=== PATIENT | male | born 1975 | race Caucasian/White ===

== ENCOUNTER 2019-05-22 11:35 | Emergency (ER) | payer OTHER ==
[2019-05-22] MEDS ORDERED: IBUPROFEN 400 MG TAB ONE (12:13)
--- NOTE | 2019-05-22 12:46 | RAD REPORT ---
EXAM DESCRIPTION: RAD - Knee Left 3 View - 05/22/2019 12:36 pm CLINICAL HISTORY: fall yesterday;Pain COMPARISON: No comparisons FINDINGS: No fracture or dislocation is seen. No significant joint effusion.
--- NOTE | 2019-05-22 12:56 | EDPHYS ---
Physician Documentation [facility] Name: Dominick Javed Age: 43 yrs Sex: Male : 1975 Arrival Date: 05/22/2019 Time: 11:38 Bed 11 Private MD: ED Physician Eddi Way HPI: 05/22 12:00 This 43 yrs old Male presents to ER via Ambulatory with complaints of Fall cp Injury, Knee Pain. 12:00 The patient presents with an abrasion, an injury, pain, that is acute, swelling, cp tenderness. The complaints affect the left knee. Context: The problem was sustained outdoors, resulted from the patient falling, the patient can fully bear weight, the patient is able to ambulate. Onset: The symptoms/episode began/occurred last night. Associated signs and symptoms: Pertinent positives: swelling, Pertinent negatives calf tenderness, numbness, warmth, weakness. Treatment prior to arrival includes: no previous treatment. Historical: - Allergies: 11:44 No Known Allergies; aa5 - PMHx: 11:44 Asthma; aa5 - PSHx: 11:44 Heart stents; aa5 - Immunization history:: Flu vaccine is not up to date. - Social history:: Smoking status: Patient reports the use of cigarette tobacco products, denies chronic smoking, but will smoke occasionally. - Ebola Screening: : No symptoms or risks identified at this time. ROS: 12:05 Constitutional: Negative for body aches, chills, fever. cp 12:05 Eyes: Negative for injury, pain, redness, and discharge. cp 12:05 Neck: Negative for pain with movement, pain at rest, stiffness. 12:05 Cardiovascular: Negative for chest pain, palpitations. 12:05 Respiratory: Negative for cough, shortness of breath, wheezing. 12:05 Abdomen/GI: Negative for abdominal pain. 12:05 Back: Negative for pain at rest, pain with movement. 12:05 MS/extremity: Positive for abrasion, pain, swelling, tenderness, of the left knee, Negative for decreased range of motion, deformity, paresthesias. 12:05 Neuro: Negative for altered mental status, headache, syncope, weakness. 12:05 All other systems are negative. Exam: 12:15 Constitutional: The patient appears in no acute distress, alert, awake, well developed, cp well nourished. 12:15 Head/Face: Normocephalic, atraumatic. cp 12:15 Cardiovascular: Rate: normal. 12:15 Respiratory: the patient does not display signs of respiratory distress, Respirations: normal. 12:15 Musculoskeletal/extremity: Extremities: grossly normal except: noted in the left knee: abrasion, swelling, tenderness, There is no evidence of decreased ROM, deformity, erythema, ROM: full active range of motion, in the left knee, Perfusion: the extremity is normally perfused throughout, Sensation intact. 12:15 Skin: cellulitis, is not appreciated, injury, abrasion(s), small abrasion noted, of the anterior aspect left knee. Vital Signs: 11:45 BP 119 / 83; Pulse 62; Resp 16 S; Temp 98.0(TE); Pulse Ox 97% on R/A; Weight 72.57 kg aa5 (R); Height 5 ft. 7 in. (170.18 cm) (R); Pain 5/10; 11:45 Body Mass Index 25.06 (72.57 kg, 170.18 cm) aa5 MDM: 11:54 Patient medically screened. cp 12:55 Differential diagnosis: dislocation, closed fracture, contusion, abrasion. cp 12:55 Data reviewed: vital signs, nurses notes, radiologic studies, plain films. Test cp interpretation: by ED physician or midlevel provider: plain radiologic studies, xrays left knee negative for fracture. Counseling: I had a detailed discussion with the patient and/or guardian regarding: the historical points, exam findings, and any diagnostic results supporting the discharge/admit diagnosis, radiology results, to return to the emergency department if symptoms worsen or persist or if there are any questions or concerns that arise at home. ED course: Wounds cleaned and dressed. Will discharge to home for continued monitoring. 05/22 11:57 Order name: XRAY Knee LEFT 3 view; Complete Time: 12:52 cp 05/22 12:52 Interpretation: Report reviewed. cp 05/22 12:38 Order name: Wound dressing; Complete Time: 13:06 cp 05/22 12:38 Order name: Heladio wrap-joint; Complete Time: 13:06 cp Administered Medications: 12:12 Drug: Ibuprofen 800 mg Route: PO; aa5 Disposition: 05/23 02:45 Co-signature as Attending Physician, Eddi Way MD I agree with the assessment and kdr plan of care. Disposition: 05/22/19 12:55 Discharged to Home. Impression: Abrasion, left knee - from fall, Pain in left knee - from fall. - Condition is Stable. - Discharge Instructions: Abrasion, Elastic Bandage and RICE, Knee Pain. - Prescriptions for Naprosyn 500 mg Oral Tablet - take 1 tablet by ORAL route 2 times per day take with food; 20 tablet. - Medication Reconciliation Form, Thank You Letter, Antibiotic Education, Prescription Opioid Use form. - Follow up: Private Physician; When: 5 - 6 days; Reason: Worsening of condition. - Problem is new. - Symptoms have improved. Signatures: Dispatcher [employer] EDMS Eddi Way MD MD [facility] June Son RN RN aa5 Tam Frost PA PA cp Nusrat Swann RN RN hb Corrections: (The following items were deleted from the chart) 05/22 13:13 12:55 05/22/2019 12:55 Discharged to Home. Impression: Abrasion, left knee - from fall; hb Pain in left knee - from fall. Condition is Stable. Forms are Medication Reconciliation Form, Thank You Letter, Antibiotic Education, Prescription Opioid Use. Follow up: Private Physician; When: 5 - 6 days; Reason: Worsening of condition. Problem is new. Symptoms have improved. cp
--- NOTE | 2019-05-22 12:56 | ER ---
Nurse's Notes [facility] Name: Domincik Javed Age: 43 yrs Sex: Male : 1975 Arrival Date: 05/22/2019 Time: 11:38 Bed 11 Private MD: Diagnosis: Abrasion, left knee-from fall;Pain in left knee-from fall Presentation: 05/22 11:45 Presenting complaint: Patient states: "I tripped and hurt my left knee". Transition of [facility] care: patient was not received from another setting of care. Onset of symptoms was May 21, 2019. Risk Assessment: Do you want to hurt yourself or someone else? Patient reports no desire to harm self or others. Initial Sepsis Screen: Does the patient meet any 2 criteria? No. Patient's initial sepsis screen is negative. Does the patient have a suspected source of infection? No. Patient's initial sepsis screen is negative. Care prior to arrival: None. 11:45 Acuity: BREE 4 aa5 11:45 Method Of Arrival: Ambulatory [facility] Historical: - Allergies: 11:44 No Known Allergies; aa5 - PMHx: 11:44 Asthma; aa5 - PSHx: 11:44 Heart stents; aa5 - Immunization history:: Flu vaccine is not up to date. - Social history:: Smoking status: Patient reports the use of cigarette tobacco products, denies chronic smoking, but will smoke occasionally. - Ebola Screening: : No symptoms or risks identified at this time. Screenin:30 Abuse screen: Denies threats or abuse. Denies injuries from another. Nutritional hb screening: No deficits noted. Tuberculosis screening: No symptoms or risk factors identified. Fall Risk None identified. Assessment: 11:50 General: Appears comfortable, Behavior is calm, cooperative. Pain: Complains of pain in aa5 left knee Pain does not radiate. Pain currently is 5 out of 10 on a pain scale. Quality of pain is described as aching, numb, Is continuous, Aggravated by weight bearing. Neuro: Level of Consciousness is awake, alert, obeys commands, Oriented to person, place, time, situation. Cardiovascular: Heart tones S1 S2 present Rhythm is regular. Respiratory: Airway is patent Respiratory effort is even, unlabored, Respiratory pattern is regular, symmetrical. GI: No signs and/or symptoms were reported involving the gastrointestinal system. : No signs and/or symptoms were reported regarding the genitourinary system. EENT: No signs and/or symptoms were reported regarding the EENT system. Derm: Skin is pink, warm \\T\\ dry. abrasion noted to left knee, no bleeding noted. Musculoskeletal: Reports pain in left knee. 12:12 Reassessment: Patient is alert, oriented x 3, equal unlabored respirations, skin aa5 warm/dry/pink. Awaiting x-ray . Vital Signs: 11:45 BP 119 / 83; Pulse 62; Resp 16 S; Temp 98.0(TE); Pulse Ox 97% on R/A; Weight 72.57 kg aa5 (R); Height 5 ft. 7 in. (170.18 cm) (R); Pain 5/10; 11:45 Body Mass Index 25.06 (72.57 kg, 170.18 cm) aa5 ED Course: 11:38 Patient arrived in ED. ag5 11:44 Arm band placed on. aa5 11:46 Triage completed. aa5 11:46 June Son RN is Primary Nurse. aa5 11:46 Tam Frost PA is PHCP. cp 11:[address] MD is Attending Physician. cp 12:30 Patient has correct armband on for positive identification. Call light in reach. hb 12:36 XRAY Knee LEFT 3 view In Process Unspecified. EDMS 13:06 Wound care: to abrasion, was cleaned with Betadine, irrigated with normal saline, lt1 dressed with applied triple antibiotic and dressed with non stick pad then wrapped with timur wrap, Patient tolerated well. 13:13 No provider procedures requiring assistance completed. Patient did not have IV access hb during this emergency room visit. Administered Medications: 12:12 Drug: Ibuprofen 800 mg Route: PO; aa5 Outcome: 12:55 Discharge ordered by MD. cp 13:13 Discharged to home ambulatory. hb 13:13 Condition: stable 13:13 Discharge instructions given to patient, Instructed on discharge instructions, follow up and referral plans. medication usage, wound care, Demonstrated understanding of instructions, follow-up care, medications, wound care, Prescriptions given X 1. 13:13 Patient left the ED. hb Signatures: Dispatcher [employer] EDMI June Son RN RN aa5 Tam Frost PA PA cp Baxter, Heather, RN RN hb Tony, Cedric ag5 Taty Donato 1
[2019-05-22 13:23] VITALS: BP 119/83; TEMP 98; O2SAT 97
== END 2019-05-22 13:13 | disposition home or self-care (01) ==
LOC: ER 11:35
DX: S80.212A Abrasion, left knee, initial encounter (principal); M25.562 Pain in left knee; W01.0XXA Fall on same level from slipping, tripping and stumbling without subsequent striking against object, initial encounter; Y93.9 Activity, unspecified; Z95.5 Presence of coronary angioplasty implant and graft; F17.210 Nicotine dependence, cigarettes, uncomplicated
CPT/HCPCS: 99284

== ENCOUNTER 2020-01-26 09:38 | Emergency (ER) | payer OTHER ==
[2020-01-26] MEDS ORDERED: DIAZEPAM 5 MG TABLET ONE (10:15)
[2020-01-26] MEDS ORDERED: KETOROLAC 30 MG/ML INJ ONE (10:15)
--- NOTE | 2020-01-26 11:18 | RAD REPORT ---
EXAM DESCRIPTION: RAD - Shoulder Right 2 View - 01/26/2020 10:30 am CLINICAL HISTORY: Right shoulder pain FINDINGS: No acute fracture or dislocation seen. 6 centimeter distal aspect of the right clavicle lies distal to the remainder of the clavicle. It is attached to the mid clavicle by a 2.4 centimeter bone bridge. This all likely is the sequela of old t rauma. Mild narrowing of the AC joint Calcific density superior to the right humeral head may indicate calcific tendinitis
--- NOTE | 2020-01-26 11:21 | ER ---
Nurse's Notes [facility] Name: Dominick Javed Age: 44 yrs Sex: Male : 1975 Arrival Date: 01/26/2020 Time: 09:39 Bed 17 Private MD: Diagnosis: Calcific tendinitis of right shoulder Presentation: 01/25 09:47 Chief complaint: Patient states: C/o right shoulder pain 4/10 that started yesterday. rb1 Coronavirus screen: At this time, the client does not indicate any symptoms associated with coronavirus-19. Ebola Screen: Patient denies travel to an Ebola-affected area in the 21 days before illness onset. Initial Sepsis Screen: Does the patient meet any 2 criteria? No. Patient's initial sepsis screen is negative. Does the patient have a suspected source of infection? No. Patient's initial sepsis screen is negative. Risk Assessment: Do you want to hurt yourself or someone else? Patient reports no desire to harm self or others. Onset of symptoms was January 25, 2020. 09:47 Method Of Arrival: Ambulatory [facility] 09:47 Acuity: BREE 3 rb1 Triage Assessment: 09:47 General: Appears in no apparent distress. Behavior is calm, cooperative. Pain: rb1 Complains of pain in right shoulder Pain currently is 4 out of 10 on a pain scale. Pain began 1 day ago. Neuro: Level of Consciousness is awake, alert, obeys commands, Oriented to person, place, time, situation. Cardiovascular: Capillary refill < 3 seconds. Respiratory: Airway is patent Respiratory effort is even, unlabored, Respiratory pattern is regular, symmetrical. GI: No signs and/or symptoms were reported involving the gastrointestinal system. : No signs and/or symptoms were reported regarding the genitourinary system. Derm: No signs and/or symptoms reported regarding the dermatologic system. Musculoskeletal: Range of motion: limited in right shoulder Pt. denies injury. Historical: - Allergies: :47 No Known Allergies; rb1 - Home Meds: :47 aspirin 81 mg Oral chew 1 tab once daily [Active]; rb1 - PMHx: :47 Asthma; rb1 - PSHx: :47 Heart stents; rb1 - Immunization history:: Adult Immunizations up to date. - Social history:: Smoking status: Patient reports the use of cigarette tobacco products, denies chronic smoking, but will smoke occasionally. Screenin:47 Abuse screen: Denies threats or abuse. Nutritional screening: No deficits noted. rb1 Tuberculosis screening: No symptoms or risk factors identified. Fall Risk None identified. Assessment: 09:47 General: See triage assessment. rb1 10:47 Reassessment: Patient appears in no apparent distress at this time. Patient and/or rb1 family updated on plan of care and expected duration. Pain level reassessed. Patient is alert, oriented x 3, equal unlabored respirations, skin warm/dry/pink. 11:36 Reassessment: Patient appears in no apparent distress at this time. No changes from rb1 previously documented assessment. Vital Signs: 09:47 BP 134 / 91; Pulse 61; Resp 17; Temp 98.6; Pulse Ox 100% ; Weight 68.04 kg; Height 5 rb1 ft. 6 in. (167.64 cm); Pain 4/10; 10:47 BP 118 / 81; Pulse 45; Resp 17; Pulse Ox 99% ; rb1 11:35 BP 114 / 83; Pulse 64; Resp 17; Pulse Ox 100% ; rb1 09:47 Body Mass Index 24.21 (68.04 kg, 167.64 cm) rb1 ED Course: 09:39 Patient arrived in ED. ag5 09:40 Helder Peacock PA is PHCP. m 09:40 Tam Hoff MD is Attending Physician. [facility] 09:47 Angle Fu, RN is Primary Nurse. rb1 09:47 Arm band placed on right wrist. rb1 09:47 Patient has correct armband on for positive identification. Bed in low position. Call rb1 light in reach. Side rails up X 1. Pulse ox on. NIBP on. 09:56 Triage completed. rb1 10:31 Shoulder Right (2 View) XRAY In Process Unspecified. EDMS 11:41 Nicolas Portillo MD is Referral Physician. jmm 11:45 No provider procedures requiring assistance completed. Patient did not have IV access rb1 during this emergency room visit. Administered Medications: 10:05 Drug: Ketorolac 30 mg Route: IM; Site: right deltoid; rb1 10:30 Follow up: Response: No adverse reaction; Pain is decreased rb1 10:05 Drug: Valium 5 mg Route: PO; rb1 10:30 Follow up: Response: No adverse reaction rb1 Outcome: 11:21 Discharge ordered by MD. de la fuente 11:45 Discharged to home ambulatory. rb1 11:45 Condition: stable 11:45 Discharge instructions given to patient, Instructed on discharge instructions, follow up and referral plans. medication usage, Demonstrated understanding of instructions, follow-up care, medications, Prescriptions given X 2. 11:46 Patient left the ED. rb1 Signatures: Dispatcher [employer] EDMS Helder Peacock PA PA jmm Barber, Rebecca, RN RN rb1 Cedric Jimenez ag5
--- NOTE | 2020-01-26 11:22 | EDPHYS ---
Physician Documentation [facility] Name: Dominick Javed Age: 44 yrs Sex: Male : 1975 Arrival Date: 01/26/2020 Time: 09:39 Bed 17 Private MD: ED Physician Tam Hoff HPI: 01/25 09:56 This 44 yrs old Male presents to ER via Ambulatory with complaints of jmm Shoulder Pain. 09:56 The patient or guardian complains of pain. Onset: The symptoms/episode began/occurred 1 jmm day(s) ago. Modifying factors: the symptoms are alleviated by remaining still, The symptoms are aggravated by movement. Associated signs and symptoms: Pertinent negatives: abdominal pain, chest pain, neck pain, shortness of breath, tingling. This is a 44 year old male that presents to the ED with complaints of right ant shoulder pain beginning yesterday after surfing. Patient denies known injury but states he does perform repetitive activities with the shoulder. Patient states he has difficulty moving the shoulder.. Historical: - Allergies: 09:47 No Known Allergies; rb1 - Home Meds: 09:47 aspirin 81 mg Oral chew 1 tab once daily [Active]; rb1 - PMHx: 09:47 Asthma; rb1 - PSHx: 09:47 Heart stents; rb1 - Immunization history:: Adult Immunizations up to date. - Social history:: Smoking status: Patient reports the use of cigarette tobacco products, denies chronic smoking, but will smoke occasionally. ROS: 09:56 Constitutional: Negative for fever, chills, and weight loss, Cardiovascular: Negative jmm for chest pain, palpitations, and edema, Respiratory: Negative for shortness of breath, cough, wheezing, and pleuritic chest pain. 09:56 MS/extremity: Positive for pain. 09:56 All other systems are negative. Exam: 09:56 Constitutional: This is a well developed, well nourished patient who is awake, alert, jmm and in no acute distress. Head/Face: atraumatic. Eyes: EOMI, no conjunctival erythema appreciated ENT: Moist Mucus Membranes Neck: Trachea midline, Supple Chest/axilla: Normal chest wall appearance and motion. Cardiovascular: Regular rate and rhythm. No edema appreciated Respiratory: Normal respirations, no respiratory distress appreciated Abdomen/GI: Non distended, soft Back: Normal ROM Skin: General appearance color normal 09:56 Musculoskeletal/extremity: ROM: limited active range of motion, in the right arm, right ant shoulder ttp, full postdoctoral research associate strength, full radial pulse, pain on abduction. 09:56 Skin: Appearance: Color: normal in color. 09:56 Neuro: Orientation: is normal, Mentation: is normal, Memory: is normal. 09:56 Psych: Behavior/mood is pleasant, cooperative. Vital Signs: 09:47 BP 134 / 91; Pulse 61; Resp 17; Temp 98.6; Pulse Ox 100% ; Weight 68.04 kg; Height 5 rb1 ft. 6 in. (167.64 cm); Pain 4/10; 10:47 BP 118 / 81; Pulse 45; Resp 17; Pulse Ox 99% ; rb1 11:35 BP 114 / 83; Pulse 64; Resp 17; Pulse Ox 100% ; rb1 09:47 Body Mass Index 24.21 (68.04 kg, 167.64 cm) rb1 MDM: 09:50 Patient medically screened. [facility] 11:20 Data reviewed: vital signs, nurses notes. Counseling: I had a detailed discussion with [facility] the patient and/or guardian regarding: the historical points, exam findings, and any diagnostic results supporting the discharge/admit diagnosis, radiology results, the need for outpatient follow up, to return to the emergency department if symptoms worsen or persist or if there are any questions or concerns that arise at home. ED course: Patient is alert and non toxic in appearance in the ED. Xray findings consistent with PE findings. Patient is advised to follow up with pcp and otherwise given strict return precautions. Patient understood and agrees with the plan of care. . 01/25 09:56 Order name: Shoulder Right (2 View) XRAY; Complete Time: 11:19 [facility] Administered Medications: 10:05 Drug: Ketorolac 30 mg Route: IM; Site: right deltoid; rb1 10:30 Follow up: Response: No adverse reaction; Pain is decreased rb1 10:05 Drug: Valium 5 mg Route: PO; rb1 10:30 Follow up: Response: No adverse reaction rb1 Disposition: 13:54 Co-signature as Attending Physician, Tam Hoff MD I agree with the assessment and shavonne plan of care. Disposition: 01/26/20 11:21 Discharged to Home. Impression: Calcific tendinitis of right shoulder. - Condition is Stable. - Discharge Instructions: Calcific Tendinitis. - Prescriptions for Ibuprofen 800 mg Oral Tablet - take 1 tablet by ORAL route every 8 hours As needed take with food; 30 tablet. orphenadrine citrate 100 mg Oral Tablet Sustained Release - take 1 tablet by ORAL route 2 times per day As needed; 20 tablet. - Medication Reconciliation Form, Thank You Letter, Antibiotic Education, Prescription Opioid Use form. - Follow up: Nicolas Portillo MD; When: 2 - 3 days; Reason: Recheck today's complaints, Continuance of care, Re-evaluation by your physician. Signatures: Dispatcher [employer] EDMS Tam Hoff MD MD cha Mickail, Joel, PA PA [facility] Angle Fu RN RN rb1 Corrections: (The following items were deleted from the chart) 11:41 11:21 01/26/2020 11:21 Discharged to Home. Impression: Calcific tendinitis of right jmm shoulder. Condition is Stable. Forms are Medication Reconciliation Form, Thank You Letter, Antibiotic Education, Prescription Opioid Use. Follow up: Private Physician; When: 2 - 3 days; Reason: Recheck today's complaints, Continuance of care, Re-evaluation by your physician. [facility] 11:46 11:41 01/26/2020 11:21 Discharged to Home. Impression: Calcific tendinitis of right rb1 shoulder. Condition is Stable. Discharge Instructions: Calcific Tendinitis. Prescriptions for Ibuprofen 800 mg Oral Tablet - take 1 tablet by ORAL route every 8 hours As needed take with food; 30 tablet, orphenadrine citrate 100 mg Oral Tablet Sustained Release - take 1 tablet by ORAL route 2 times per day As needed; 20 tablet. and Forms are Medication Reconciliation Form, Thank You Letter, Antibiotic Education, Prescription Opioid Use. Follow up: Nicolas Portillo; When: 2 - 3 days; Reason: Recheck today's complaints, Continuance of care, Re-evaluation by your physician. [facility]
[2020-01-26 12:04] VITALS: TEMP 98.6
[2020-01-26 12:07] VITALS: BP 114/83; O2SAT 100
== END 2020-01-26 11:46 | disposition home or self-care (01) ==
LOC: ER 09:38
DX: M75.31 Calcific tendinitis of right shoulder (principal); F17.210 Nicotine dependence, cigarettes, uncomplicated; Z79.82 Long term (current) use of aspirin; Z95.818 Presence of other cardiac implants and grafts
CPT/HCPCS: 96372; 99284

== ENCOUNTER 2022-08-25 14:23 | Emergency (ER) | payer SELFPAY ==
--- OUTSIDE RECORDS SUMMARY | 2022-08-25 14:26 | XMS REPORT | Continuity of Care Document ---
:1975 Author Organization [facility] t Address [address] [facility]. [address] [place] [address] Care Team Providers Name Role Phone Nicolas Valenzuela MD Attending Clinician Aníbal Dong Attending Clinician ANÍBAL DELGADO Attending Clinician Unavailable Payers Payer Name Policy Type Policy Number Effective Date Expiration Date S ource Problems This patient has no known problems. Allergies, Adverse Reactions, Alerts Allergy Allergy Status Severity Reaction(s) Onset Inactive Treating Comm ents Source Name Type Date Date Clinician NO KNOWN Drug Active Univers ALLERGIE Class ity of S [facility] Social History Social Habit Start Date Stop Date Quantity Comments Source Sex Assigned At Universit y of [facility] Exposure to Not sure University of SARS-CoV-2 [facility] (event) Branch Tobacco use and 2020-01-28 2020-01-28 Current user Univers ity of exposure 00:00:00 00:00:00 [facility] Alcohol intake 2020-01-28 2020-01-28 Current drinker Unive rsity of 00:00:00 00:00:00 of alcohol [place] [facility] (finding) Branch History SDOH 2020-01-28 2020-01-28 2 University o f Alcohol Frequency 00:00:00 00:00:00 [place] [facility] History SDOH 2020-01-28 2020-01-28 99 University o f Alcohol Std 00:00:00 00:00:00 [facility] Drinks [facility] History SDRI 2020-01-28 2020-01-28 99 University o f Alcohol Binge 00:00:00 00:00:00 [place] [facility] Smoking Status Start Date Stop Date Source Current every day smoker 2020-01-28 00:00:00 Uni versity of [facility] Medications Ordered Filled Start Stop Current Ordering Indication Dosage Frequency Signature Comments Components Source Medication Medication Date Date Medication? Clinician (SIG) Name Name traMADoL 50 2020-1 2020- No 2745 50mg Take 1 Uni vers mg tablet 0-02 10-10 tablet by ity of 00:00: 04:59 mouth [place] 00 :00 every 4 Medical (four) Branch hours as needed for Pain (scale 7-10) for up to 7 days. Indication s: chronic pain ibuprofen 2019-04 Yes 800mg Take 800 Uni vers 800 mg 0-01 mg by ity of tablet 19:37: mouth [place] 23 every 6 Medical (six) Branch hours as needed. ibuprofen 2019-04 Yes 800mg Take 800 Uni vers 800 mg 0-01 mg by ity of tablet 19:37: mouth [place] 23 every 6 Medical (six) Branch hours as needed. ibuprofen 2019-04 Yes 800mg Take 800 Uni vers 800 mg 0-01 mg by ity of tablet 19:37: mouth [place] 23 every 6 Medical (six) Branch hours as needed. ibuprofen 2019-04 Yes 800mg Take 800 Uni vers 800 mg 0-01 mg by ity of tablet 19:37: mouth [place] 23 every 6 Medical (six) Branch hours as needed. ibuprofen 2019-04 Yes 800mg Take 800 Uni vers 800 mg 0-01 mg by ity of tablet 19:37: mouth [place] 23 every 6 Medical (six) Branch hours as needed. atorvastati 2019-04 Yes Take by Uni vers n calcium 0-01 mouth. ity of (ATORVASTAT 19:36: [place] IN ORAL) Medical Branch aspirin 81 2019-04 Yes 81mg Take 81 mg U nivers mg EC 0-01 by mouth ity of tablet 19:36: daily. [place] [address] Medical Branch atorvastati 2019-04 Yes Take by Uni vers n calcium 0-01 mouth. ity of (ATORVASTAT 19:36: [place] IN ORAL) Medical Branch aspirin 81 2019- Yes 81mg Take 81 mg U nivers mg EC 0-01 by mouth ity of tablet 19:36: daily. [place] [address] Medical Branch atorvastati 2019-04 Yes Take by Uni vers n calcium 0-01 mouth. ity of (ATORVASTAT 19:36: [place] IN ORAL) Medical Branch aspirin 81 2019- Yes 81mg Take 81 mg U nivers mg EC 0-01 by mouth ity of tablet 19:36: daily. [address] atorvastati 2019-04 Yes Take by Uni vers n calcium 0-01 mouth. ity of (ATORVASTAT 19:36: [place] IN ORAL) [address] [place] [address] aspirin 81 2019-04 Yes 81mg Take 81 mg U nivers mg EC 0-01 by mouth ity of tablet 19:36: daily. [address] atorvastati 2019-04 Yes Take by Uni vers n calcium 0-01 mouth. ity of (ATORVASTAT 19:36: [place] IN ORAL) [address] [place] [address] aspirin 81 2019-04 Yes 81mg Take 81 mg U nivers mg EC 0-01 by mouth ity of tablet 19:36: daily. [address] Vital Signs Vital Name Observation Time Observation Value Comments Source Systolic blood 2020-01-28 19:31:00 109 mm[facility]Hg] [facility] [place] [facility] blood 2020-01-28 19:31:00 71 [facility] 2020-01-28 19:31:00 55 /min [facility] Body height 2020-01-28 19:31:00 167.6 cm [facility] Body weight 2020-01-28 19:31:00 70.308 kg [facility] BMI 2020-01-28 19:31:00 25.02 kg/m2 [facility] Procedures This patient has no known procedures. Encounters Start End Encounter Admission Attending Care Care Encounter Source Date/Time Date/Time Type Type Clinicians Facility Department ID 2020-01-29 2020-01-[address] [facility] [id number] Univers 00:00:00 00:00:00 [facility] [id number] it y of Surgical [id number] Justin as Specialti [id number] Ak dical es [address] [facility] 2020-01-28 2020-01-[address] [facility] [id number] Univers 14:28:27 14:43:27 Visit [facility] [id number] it y of Surgical [id number] Justin as Specialti [id number] Ak dical es 198 [facility] 2020-01-28 2020-01-28 Outpatient R CYNTHIA [facility] [id number] Univers 14:30:00 14:30:00 ANÍBAL [facility] 2020-01-28 2020-01-[address] [facility] [id number] Univers 00:00:00 00:00:00 [facility] [id number] it y of Surgical [id number] Justin as Specialti [id number] Ak dical es 198 Branch [place] Results This patient has no known results.
[2022-08-25] MEDS ORDERED: HYDROCODONE/APAP 5/325 MG TAB ONE (15:53)
[2022-08-25] MEDS ORDERED: IBUPROFEN 400 MG TAB ONE (15:53)
--- NOTE | 2022-08-25 16:47 | RAD REPORT ---
EXAM DESCRIPTION: RAD - Humerus Left - 08/25/2022 4:01 pm CLINICAL HISTORY: PAIN COMPARISON: No comparisons TECHNIQUE: Left Humerus, 3 views. FINDINGS: No fracture is identified. There is no dislocation or periosteal reaction noted. No forei gn body or other soft tissue abnormality. Small sclerotic focus at the humeral head suggestive of a small bone island. IMPRESSION: Negative left humerus examination.
--- NOTE | 2022-08-25 17:14 | EDPHYS ---
Physician Documentation [facility] Name: Dominick Javed Age: 47 yrs Sex: Male : 1975 Arrival Date: 08/25/2022 Time: 14:23 Bed 10 Private MD: ED Physician Masoud Bal HPI: 08/25 16:00 This 47 yrs old Male presents to ER via Ambulatory with complaints of Arm Pain, Arm cp Injury. 16:00 The patient or guardian complains of injury, pain, that is acute, swelling, tenderness. cp The complaints affect the left elbow. 16:00 Context: resulted from a fall, while running. Onset: The symptoms/episode cp began/occurred yesterday. Treatment prior to arrival includes: no previous treatment. 16:00 Associated signs and symptoms: Pertinent positives: decreased range of motion, cp swelling, Pertinent negatives: fever. Historical: - Allergies: 14:30 No Known Allergies; hb - PMHx: 14:30 Asthma; hb - Immunization history:: Client reports having NOT received the Covid vaccine. - Social history:: Smoking status: Patient reports the use of cigarette tobacco products, denies chronic smoking, but will smoke occasionally. ROS: 16:05 MS/extremity: Positive for pain, swelling, tenderness, of the left upper arm and left cp elbow and left forearm, decreased ROM left elbow. 16:05 Eyes: Negative for injury, pain, redness, and discharge. cp 16:05 Constitutional: Negative for body aches, chills, fever, poor PO intake. 16:05 Neck: Negative for pain with movement, pain at rest. 16:05 Back: Negative for pain at rest, pain with movement. 16:05 Respiratory: Negative for cough, shortness of breath, wheezing. cp 16:05 Cardiovascular: Negative for chest pain, palpitations. cp 16:05 Abdomen/GI: Negative for abdominal pain, nausea, vomiting, and diarrhea. 16:05 Neuro: Negative for altered mental status, dizziness, headache, syncope, weakness. 16:05 All other systems are negative. Exam: 16:10 Constitutional: The patient appears in no acute distress, alert, awake, non-toxic, well cp developed, well nourished, uncomfortable. 16:10 Head/Face: Normocephalic, atraumatic. cp 16:10 Neck: C-spine: vertebral tenderness, is not appreciated, crepitus, is not appreciated, ROM/movement: is normal, is supple, without pain, no range of motions limitations. 16:10 Chest/axilla: Inspection: normal, Palpation: is normal, no crepitus, no tenderness. 16:10 Cardiovascular: Rate: normal, Rhythm: regular, Pulses: Pulses are 2+ in left radial artery. 16:10 Respiratory: the patient does not display signs of respiratory distress, Respirations: normal, no use of accessory muscles, no retractions, labored breathing, is not present, Breath sounds: are clear throughout, no decreased breath sounds. 16:10 Abdomen/GI: Exam negative for discomfort, distension, guarding, Inspection: abdomen appears normal. 16:10 Back: pain, is absent, ROM is normal. 16:10 Musculoskeletal/extremity: Extremities: grossly normal except: noted in the left elbow: decreased ROM, pain, swelling, tenderness, noted in the left upper arm: tenderness, no evidence of decreased ROM, deformity, noted in the left forearm: deformity, swelling, tenderness, ROM: limited passive range of motion, in the left elbow, the left hand and left arm Sensation intact. 16:10 Neuro: Orientation: to person, place \T\ time. Mentation: is normal. Vital Signs: 14:29 BP 131 / 89; Pulse 69; Resp 16; Temp 98.4; Pulse Ox 97% ; Weight 68.04 kg; Height 5 ft. hb 6 in. ; Pain 8/10; 14:29 Body Mass Index 24.21 (68.04 kg, 167.64 cm) hb 14:29 Pain Scale: Adult hb Procedures: 18:05 Splinting: Splint applied to left elbow using Orthoglass splint, sling, posterior long cp arm. applied by nurse. Examined by me, post splint application: neurovascular intact, Patient tolerated well. MDM: 14:31 Patient medically screened. cp 16:00 Differential diagnosis: dislocation, open fracture, closed fracture, contusion. cp 17:12 Data reviewed: vital signs, nurses notes, radiologic studies, plain films. cp 17:12 Consideration of Admission/Observation Escalation of care including cp admission/observation considered. I considered the following discharge prescriptions or medication management in the emergency department Medications were administered in the Emergency Department. See MAR. Independent interpretation of the following test(s) in the Emergency Department X-Ray: My interpretation is images of elbow show comminuted fracture of left radial head/neck, images of left humerus negative for fracture and images of left forearm show radial head/neck fracture. Counseling: I had a detailed discussion with the patient and/or guardian regarding: the historical points, exam findings, and any diagnostic results supporting the discharge/admit diagnosis, radiology results, the need for outpatient follow up, for definitive care, a orthopedic surgeon, to return to the emergency department if symptoms worsen or persist or if there are any questions or concerns that arise at home. Response to treatment: the patient's symptoms have markedly improved after treatment, and as a result, I will discharge patient. 08/25 14:33 Order name: XRAY Elbow LEFT 3 view; Complete Time: 17:35 cp 08/25 17:35 Interpretation: Report reviewed. cp 08/25 14:33 Order name: Humerus Left XRAY; Complete Time: 17:35 cp 08/25 14:33 Order name: XRAY Forearm LEFT; Complete Time: 17:35 cp 08/25 16:23 Order name: Splint - Elbow - Posterior: long arm posterior; Complete Time: 17:41 cp 08/25 16:23 Order name: Sling; Complete Time: 17:41 cp Administered Medications: 15:55 Drug: Ibuprofen PO 800 mg Route: PO; nj1 16:25 Follow up: Response: No adverse reaction; Pain is decreased nj1 15:55 Drug: HYDROcodone-acetaminophen PO 5 mg-325 mg 1 tabs Route: PO; nj1 16:25 Follow up: Response: No adverse reaction; Pain is decreased nj1 Disposition: 20:14 Co-signature as Attending Physician, Masoud Bal DO I was immediately available on-site ms3 in the Emergency Department for consultation in the care of the patient. Disposition Summary: 08/25/22 17:13 Discharge Ordered Location: Home cp Problem: new cp Symptoms: have improved cp Condition: Stable cp Diagnosis - Displaced fracture of head of left radius, initial encounter for closed fracture cp - Fall on same level, unspecified cp Followup: cp - With: Nicolas Portillo MD - When: 2 - 3 days - Reason: Recheck today's complaints Discharge Instructions: - Discharge Summary Sheet cp - Radial Head Fracture cp Forms: - Medication Reconciliation Form cp - Thank You Letter cp - Antibiotic Education cp - Prescription Opioid Use cp Prescriptions: - acetaminophen-codeine 300-30 mg Oral tablet - take 2 tablet by ORAL route every 8 hours; 12 tablet; Refills: 0, Product cp Selection Permitted - Ibuprofen 800 mg Oral Tablet - take 1 tablet by ORAL route every 8 hours As needed take with food; 30 tablet; cp Refills: 0, Product Selection Permitted Signatures: Dispatcher [employer] EDMS Tam Frost PA PA cp Nusrat Swann RN RN Masoud Bal DO DO ms3 Suzette Kovacs RN RN nj1
--- NOTE | 2022-08-25 17:14 | ER ---
Nurse's Notes [facility] Name: Dominick Javed Age: 47 yrs Sex: Male : 1975 Arrival Date: 08/25/2022 Time: 14:23 Bed 10 Private MD: Diagnosis: Displaced fracture of head of left radius, initial encounter for closed fracture;Fall on same level, unspecified Presentation: 08/25 14:29 Chief complaint: Slipped on gravel while running 2 days ago, c/o left arm swelling and hb pain 8/10. Denies other injuries. Coronavirus screen: At this time, the client does not indicate any symptoms associated with coronavirus-19. Ebola Screen: No symptoms or risks identified at this time. Initial Sepsis Screen: Does the patient meet any 2 criteria? No. Patient's initial sepsis screen is negative. Does the patient have a suspected source of infection? No. Patient's initial sepsis screen is negative. Risk Assessment: Do you want to hurt yourself or someone else? Patient reports no desire to harm self or others. Onset of symptoms was August 23, 2022. 14:29 Method Of Arrival: Ambulatory hb 14:29 Acuity: BREE 4 hb Triage Assessment: 15:55 General: Appears in no apparent distress. uncomfortable, Behavior is calm, cooperative, nj1 appropriate for age. 15:55 Pain: Complains of pain in left arm Pain currently is 8 out of 10 on a pain scale. Pain nj1 began 1 day ago. Neuro: Level of Consciousness is awake, alert, obeys commands, Oriented to person, place, time, situation. Cardiovascular: Patient's skin is warm and dry. Respiratory: Airway is patent Respiratory effort is even, unlabored. Musculoskeletal: Reports pain in left arm. Historical: - Allergies: 14:30 No Known Allergies; hb - PMHx: 14:30 Asthma; hb - Immunization history:: Client reports having NOT received the Covid vaccine. - Social history:: Smoking status: Patient reports the use of cigarette tobacco products, denies chronic smoking, but will smoke occasionally. Screenin:55 [facility] ED Fall Risk Assessment (Adult) History of falling in the last 3 months, nj1 including since admission Yes- single mechanical fall (1 pt) Confusion or Disorientation No (0 pts) Intoxicated or Sedated No (0 pts) Impaired Gait No (0 pts) Mobility Assist Device Used No (0 pt) Altered Elimination No (0 pt) Score/Fall Risk Level 0 - 2 = Low Risk Oriented to surroundings, Maintained a safe environment, Hourly rounding (assess needs \T\ fall precautionary measures) done. 15:55 Abuse screen: Denies threats or abuse. Denies injuries from another. Nutritional nj1 screening: No deficits noted. Tuberculosis screening: No symptoms or risk factors identified. Assessment: 15:55 Reassessment: Patient appears in no apparent distress at this time. Patient and/or nj1 family updated on plan of care and expected duration. Pain level reassessed. Patient is alert, oriented x 3, equal unlabored respirations, skin warm/dry/pink. 15:55 Pain: Complains of pain in left arm Pain currently is 8 out of 10 on a pain scale. nj1 16:25 Reassessment: Patient states feeling better. nj1 Vital Signs: 14:29 BP 131 / 89; Pulse 69; Resp 16; Temp 98.4; Pulse Ox 97% ; Weight 68.04 kg; Height 5 ft. hb 6 in. ; Pain 8/10; 14:29 Body Mass Index 24.21 (68.04 kg, 167.64 cm) hb 14:29 Pain Scale: Adult hb ED Course: 14:26 Patient arrived in ED. am2 14:27 Tam Frost PA is PHCP. cp 14:27 Masoud Bal DO is Attending Physician. cp 14:30 Triage completed. hb 14:30 Arm band placed on. hb 15:36 Suzette Kovacs, RN is Primary Nurse. nj1 15:55 Patient has correct armband on for positive identification. Bed in low position. Call [facility] light in reach. Adult w/ patient. 16:02 XRAY Elbow LEFT 3 view In Process Unspecified. EDMS 16:02 Humerus Left XRAY In Process Unspecified. EDMS 16:02 XRAY Forearm LEFT In Process Unspecified. EDMS 16:58 Nicolas Portillo MD is Referral Physician. cp 17:41 Orthoglass splint: posterior long arm splint applied to the left arm. Sling applied to mm9 left arm. Administered Medications: 15:55 Drug: Ibuprofen PO 800 mg Route: PO; nj 16:25 Follow up: Response: No adverse reaction; Pain is decreased nj1 15:55 Drug: HYDROcodone-acetaminophen PO 5 mg-325 mg 1 tabs Route: PO; nj1 16:25 Follow up: Response: No adverse reaction; Pain is decreased nj1 Outcome: 17:13 Discharge ordered by MD. qureshi 18:42 Patient left the ED. hb Signatures: Dispatcher [employer] EDMS Tam Frost PA PA cp Baxter, Heather, RN RN Kassidy Fuentes 2 Hannah Orellana [facility] Suzette Kovacs RN RN nj1
--- NOTE | 2022-08-25 17:29 | RAD REPORT ---
EXAM DESCRIPTION: RAD - Elbow Left 3 View - 08/25/2022 4:00 pm CLINICAL HISTORY: fall;Pain COMPARISON: No comparisons TECHNIQUE: Left elbow, 3 views. FINDINGS: Buckled appearance of the anterior cortex at the radial head/ neck junction. Elevation of the anterior elbow fat pad which may indicate an effusion. There is no dislocation or periosteal reaction noted. No foreign body or other soft tissue abnormalit y. IMPRESSION: Suspected buckled fracture at the radial head/ neck junction. Elevated anterior elbow fa t pad suggesting an effusion.
--- NOTE | 2022-08-25 17:30 | RAD REPORT ---
EXAM DESCRIPTION: RAD - Forearm Left - 08/25/2022 4:01 pm CLINICAL HISTORY: PAIN COMPARISON: No comparisons TECHNIQUE: Left forearm, 2 views. FINDINGS: Buckle radial head/neck fracture. There is no dislocation. Small elbow joint effusion. No foreign body or other soft tissue abnormality. IMPRESSION: Buckled radial head/ neck fracture.
[2022-08-25 18:48] VITALS: BP 131/89; TEMP 98.4; O2SAT 97
== END 2022-08-25 18:42 | disposition home or self-care (01) ==
LOC: ER 14:23
PROC: 2W3BX1Z Immobilization of Left Upper Arm using Splint (ICD-10-PCS; principal; 2022-08-25)
DX: S52.122A Displaced fracture of head of left radius, initial encounter for closed fracture (principal); W18.30XA Fall on same level, unspecified, initial encounter
CPT/HCPCS: 99283

== ENCOUNTER 2022-12-17 23:34 | Emergency (ER) | payer SELFPAY ==
--- OUTSIDE RECORDS SUMMARY | 2022-12-17 23:37 | XMS REPORT | Continuity of Care Document ---
:1975 Author Organization [facility] t Address [address] [facility]. [address] [place] [address] Care Team Providers Name Role Phone Nicolas [...] Active Univers ALLERGIE Class ity of S [facility] Social History Social Habit Start Date Stop Date Quantity Comments Source Sex Assigned At Universit y of [facility] Exposure to Not sure University of SARS-CoV-2 [facility] (event) Branch Tobacco use and 2020-01-28 2020-01-28 Current user Univers ity of exposure 00:00:00 00:00:00 [facility] Alcohol intake 2020-01-28 2020-01-28 Current drinker Unive rsity of 00:00:00 00:00:00 of alcohol [place] [facility] (finding) Branch History SDOH 2020-01-28 2020-01-28 2 University o f Alcohol Frequency 00:00:00 00:00:00 [place] [facility] History SDOH 2020-01-28 2020-01-28 99 University o f Alcohol Std 00:00:00 00:00:00 [place] [facility] Drinks [facility] History SDSD 2020-01-28 2020-01-28 99 University o f Alcohol Binge 00:00:00 00:00:00 [place] [facility] Smoking Status Start Date Stop Date Source Current every day smoker 2020-01-28 00:00:00 Uni versity of [facility] Medications Ordered Filled Start Stop Current Ordering [...] by mouth ity of tablet 19:36: daily. [place] [address] Medical Branch atorvastati 2019-04 Yes Take by Uni vers n calcium 0-01 mouth. ity of (ATORVASTAT 19:36: [place] IN ORAL) Medical Branch aspirin 81 2019- Yes 81mg Take 81 mg U nivers mg EC 0-01 by mouth ity of tablet 19:36: daily. [place] [address] Medical Branch atorvastati 2019-04 Yes Take by Uni vers n calcium 0-01 mouth. ity of (ATORVASTAT 19:36: [place] IN ORAL) Medical Branch aspirin 81 2019- Yes 81mg Take 81 mg U nivers mg EC 0-01 by mouth ity of tablet 19:36: daily. [address] atorvastati 2019-04 Yes Take by Uni vers n calcium 0-01 mouth. ity of (ATORVASTAT 19:36: [place] IN ORAL) [address] [place] [address] aspirin 81 2019-04 Yes 81mg Take 81 mg U nivers mg EC 0-01 by mouth ity of tablet 19:36: daily. [address] atorvastati 2019-04 Yes Take by Uni vers n calcium 0-01 mouth. ity of (ATORVASTAT 19:36: [place] IN ORAL) [address] [place] [address] aspirin 81 2019-04 Yes 81mg Take 81 mg U nivers mg EC 0-01 by mouth ity of tablet 19:36: daily. [address] Vital Signs Vital Name Observation Time Observation Value Comments Source Systolic blood 2020-01-28 19:31:00 109 mm[facility]Hg] [facility] 2020-01-28 19:31:00 71 [facility]Hg[facility] 2020-01-28 19:31:00 55 /min [facility] Body height 2020-01-28 19:31:00 167.6 cm [facility] Body weight 2020-01-28 19:31:00 70.308 kg [facility] BMI 2020-01-28 19:31:00 25.02 kg/m2 [facility] Procedures This patient has no known procedures. Encounters Start End Encounter Admission Attending Care Care Encounter Source Date/Time Date/Time Type Type Clinicians Facility Department ID 2020-01-29 2020-01-29 Telephone Nicolas [facility] [id number] Univers 00:00:00 00:00:00 [facility] [employer] [id number] it y of Surgical [id number] Justin as Specialti [id number] Ma dical es [address] [facility] 2020-01-28 2020-01-28 Office Cynthia [facility] [id number] Univers 14:28:27 14:43:27 Visit [facility] [id number] it y of Surgical [id number] Justin as Specialti [phone] Ma dical es 198 [facility] 2020-01-28 2020-01-28 Outpatient R CYNTHIA [facility] [id number] Univers 14:30:00 14:30:00 ANÍBAL [facility] 2020-01-28 2020-01-28 Telephone Cynthia [facility] [id number] Univers 00:00:00 00:00:00 [facility] [id number] it y of Surgical [id number] Justin as Specialti [phone] Ma dical es 198 Branch [place] Results This patient has no known results.
[2022-12-18] MEDS ORDERED: MORPHINE 4 MG/ML SYR ONE (00:25)
[2022-12-18] MEDS ORDERED: NA CHLORIDE 0.9% 1,000 ML ONE (00:25)
[2022-12-18 00:35] LABS: Absolute Lymphocytes (CBC) 1.8 K/uL (0.7-4.9); Hematocrit 40.2 % (39.6-49.0); Lymphocytes % 17.4 % (15.3-44.8); MCV 89.9 fL (80-100); MPV 7.5 fL (7.6-11.3); Platelets 231 thou/uL (152-406); RBC Red Blood Cell Count 4.47 M/uL (4.33-5.43)
[2022-12-18 00:47] LABS: Albumin 3.6 g/dL (3.4-5.0); Bilirubin Total 0.3 mg/dL (0.2-1.0); Potassium 3.9 mEq/L (3.5-5.1); Protein, Total 7.1 g/dL (6.4-8.2)
--- NOTE | 2022-12-18 02:27 | ER ---
Nurse's Notes [facility] Name: Dominick Javed Age: 47 yrs Sex: Male : 1975 Arrival Date: 12/17/2022 Time: 23:34 Bed 10 Private MD: Diagnosis: Anorectal abscess Presentation: 12/17 23:47 Chief complaint: Patient states: left buttock pain x 1 week gradually increasing in kl pain. Coronavirus screen: Vaccine status: Patient reports being unvaccinated. Ebola Screen: Patient negative for fever greater than or equal to 101.5 degrees Fahrenheit, and additional compatible Ebola Virus Disease symptoms. Initial Sepsis Screen: Does the patient meet any 2 criteria? No. Patient's initial sepsis screen is negative. Does the patient have a suspected source of infection? No. Patient's initial sepsis screen is negative. Risk Assessment: Do you want to hurt yourself or someone else? Patient reports no desire to harm self or others. 23:47 Method Of Arrival: Ambulatory 23:47 Acuity: BREE 3 kl Triage Assessment: 23:51 General: Appears uncomfortable, Behavior is cooperative. Pain: Complains of pain in kl right gluteus jaelyn. Historical: - Allergies: 23:50 No Known Allergies; kl - Home Meds: 23:50 atorvastatin oral [Active]; aspirin 81 mg Oral chew 1 tab once daily [Active]; kl - PMHx: 23:50 Asthma; high cholesterol; MD; kl - PSHx: 23:50 Stented artery; kl - Immunization history:: Adult Immunizations not immunized. - Social history:: Smoking status: Patient reports the use of cigarette tobacco products, denies chronic smoking, but will smoke occasionally. Screenin:55 [facility] ED Fall Risk Assessment (Adult) History of falling in the last 3 months, kl including since admission No falls in past 3 months (0 pts) Confusion or Disorientation No (0 pts) Intoxicated or Sedated No (0 pts) Impaired Gait No (0 pts) Mobility Assist Device Used No (0 pt) Altered Elimination No (0 pt) Score/Fall Risk Level 0 - 2 = Low Risk Oriented to surroundings, Maintained a safe environment. Abuse screen: Denies threats or abuse. Nutritional screening: No deficits noted. Tuberculosis screening: No symptoms or risk factors identified. Assessment: 23:55 General: Appears uncomfortable, Behavior is cooperative. Neuro: No deficits noted. kl Cardiovascular: No deficits noted. Respiratory: No deficits noted. GI: No deficits noted. No signs and/or symptoms were reported involving the gastrointestinal system. : No deficits noted. No signs and/or symptoms were reported regarding the genitourinary system. EENT: No deficits noted. No signs and/or symptoms were reported regarding the EENT system. 12/18 02:34 Reassessment: Patient appears in no apparent distress at this time. Patient and/or cg family updated on plan of care and expected duration. Pain level reassessed. Patient is alert, oriented x 3, equal unlabored respirations, skin warm/dry/pink. Patient states symptoms have improved. Vital Signs: 12/17 23:47 BP 128 / 90; Pulse 84; Resp 18; Temp 98(O); Pulse Ox 97% on R/A; Weight 68.04 kg (R); kl Height 5 ft. 6 in. ; Pain 6/10; 12/18 02:35 Pulse 68; Resp 16; Pulse Ox 97% on R/A; cg 03:10 BP 114 / 66; Pulse 64; Resp 16; Pulse Ox 97% on R/A; kl 12/17 23:47 Body Mass Index 24.21 (68.04 kg, 167.64 cm) kl 12/17 23:47 Pain Scale: Adult kl ED Course: 12/17 23:38 Patient arrived in ED. kj1 23:42 Tam Frost PA is PHCP. cp 23:42 Esperanza Bravo MD is Attending Physician. cp 23:50 Triage completed. kl 23:55 Patient has correct armband on for positive identification. Placed in gown. Bed in low kl position. Call light in reach. 12/18 00:19 Radiology exam delayed due to lab results not completed at this time. (BUN/Creatinine) eh4 IV insertion attempt and/or patient not having appropriate IV at this time. 00:20 CBC with Diff Sent. kl 00:20 CMP Sent. kl 00:20 Lipase Sent. kl 00:20 Inserted saline lock: 22 gauge in right antecubital area, using aseptic technique. rv1 Blood collected. 01:32 CT Pelvis w cont In Process Unspecified. EDMS 02:25 John Hoyos MD is Referral Physician. cp 03:10 No provider procedures requiring assistance completed. IV discontinued, intact, kl bleeding controlled, No redness/swelling at site. Pressure dressing applied. Administered Medications: 00:20 Drug: NS 0.9% IV 1000 ml Route: IV; Rate: 1 bolus; Site: right antecubital; kl 01:26 Follow up: IV Status: Completed infusion; IV Intake: 1000ml kl 00:20 Drug: morphine IVP or IV 4 mg Route: IVP; Infused Over: 4 mins; Site: right antecubital;kl 01:26 Follow up: Response: No adverse reaction; Marked relief of symptoms kl 02:34 Drug: Ampicillin-Sulbactam Sodium IVPB 3 grams Route: IVPB; Infused Over: 30 mins; Site: right antecubital; 03:09 Follow up: IV Status: Completed infusion; IV Intake: 100ml kl Intake: 01: IV: 1000ml; Total: 1000ml. kl 03:09 IV: 100ml; Total: 1100ml. kl Outcome: 02:26 Discharge ordered by MD. cp 03:10 Discharged to home ambulatory. kl 03:10 Condition: improved 03:10 Discharge instructions given to patient, Instructed on discharge instructions, follow up and referral plans. medication usage, Demonstrated understanding of instructions, follow-up care, medications, Prescriptions given X 3. 03:11 Patient left the ED. kl Signatures: Dispatcher [employer] EDLucy Berg RN Tam Adames PA PA cp Garcia, Cindy, RN RN cg Jackson, Kandis [address] [place] [id number] [address] mendoza [facility]
--- NOTE | 2022-12-18 02:27 | EDPHYS ---
Physician Documentation [facility] Name: Dominick Javed Age: 47 yrs Sex: Male : 1975 Arrival Date: 12/17/2022 Time: 23:34 Bed 10 Private MD: ED Physician Esperanza Bravo HPI: 12/18 00:00 This 47 yrs old Male presents to ER via Ambulatory with complaints of Rectal Pain. cp Historical: - Allergies: 12/17 23:50 No Known Allergies; kl - Home Meds: 23:50 atorvastatin oral [Active]; aspirin 81 mg Oral chew 1 tab once daily [Active]; kl - PMHx: 23:50 Asthma; high cholesterol; VT; kl - PSHx: 23:50 Stented artery; kl - Immunization history:: Adult Immunizations not immunized. - Social history:: Smoking status: Patient reports the use of cigarette tobacco products, denies chronic smoking, but will smoke occasionally. ROS: 12/18 00:05 Constitutional: Negative for body aches, chills, fever, poor PO intake. cp 00:05 Eyes: Negative for injury, pain, redness, and discharge. cp 00:05 ENT: Negative for drainage from ear(s), ear pain, sore throat, difficulty swallowing, difficulty handling secretions. 00:05 Cardiovascular: Negative for chest pain, palpitations. 00:05 Respiratory: Negative for cough, shortness of breath, wheezing. 00:05 Abdomen/GI: Positive for rectal pain, Negative for abdominal pain, nausea and vomiting, diarrhea, constipation, black/tarry stool, rectal bleeding. 00:05 Back: Negative for pain at rest, pain with movement. 00:05 : Negative for urinary symptoms, testicular pain 00:05 Skin: Negative for cellulitis, rash. 00:05 Neuro: Negative for altered mental status, headache, weakness. 00:05 All other systems are negative. Exam: 00:10 Constitutional: The patient appears in no acute distress, alert, awake, cp non-diaphoretic, non-toxic, well developed, well nourished, uncomfortable. 00:10 Head/Face: Normocephalic, atraumatic. cp 00:10 Eyes: Periorbital structures: appear normal, Conjunctiva: normal, no exudate, no injection, Sclera: no appreciated abnormality, Lids and lashes: appear normal, bilaterally. 00:10 ENT: External ear(s): are unremarkable, Nose: is normal, Mouth: Lips: moist, Oral mucosa: pink and intact, moist, Posterior pharynx: is normal, airway is patent, no erythema, no exudate. 00:10 Chest/axilla: Inspection: normal. 00:10 Cardiovascular: Rate: normal, Rhythm: regular. 00:10 Respiratory: the patient does not display signs of respiratory distress, Respirations: normal, no use of accessory muscles, no retractions, labored breathing, is not present, Breath sounds: are clear throughout, no decreased breath sounds, no stridor, no wheezing. 00:10 Abdomen/GI: Inspection: abdomen appears normal, Palpation: abdomen is soft and non-tender, Rectal exam: hemorrhoid(s), are not appreciated, swelling, is not appreciated, marked tenderness and pain at 9 o"clock position of rectal face w/o swelling and/or erythema noted. Vital Signs: 12/17 23:47 BP 128 / 90; Pulse 84; Resp 18; Temp 98(O); Pulse Ox 97% on R/A; Weight 68.04 kg (R); kl Height 5 ft. 6 in. ; Pain 6/10; 12/18 02:35 Pulse 68; Resp 16; Pulse Ox 97% on R/A; cg 03:10 BP 114 / 66; Pulse 64; Resp 16; Pulse Ox 97% on R/A; kl 12/17 23:47 Body Mass Index 24.21 (68.04 kg, 167.64 cm) 12/17 23:47 Pain Scale: Adult kl MDM: 12/17 23:54 Patient medically screened. cp 12/18 00:00 Differential diagnosis: hemorrhoids, fissure, abscess, pilonidal cyst, condyloma. cp 02:25 Data reviewed: vital signs, nurses notes, lab test result(s), radiologic studies, CT cp scan. 02:25 Consideration of Admission/Observation Escalation of care including cp admission/observation considered. I considered the following discharge prescriptions or medication management in the emergency department Medications were administered in the Emergency Department. See MAR. Counseling: I had a detailed discussion with the patient and/or guardian regarding the historical points, exam findings, and any diagnostic results supporting the discharge/admit diagnosis, lab results, radiology results, the need for outpatient follow up, a general surgeon, to return to the emergency department if symptoms worsen or persist or if there are any questions or concerns that arise at home. Response to treatment: the patient's symptoms have mildly improved after treatment, and as a result, I will discharge patient. 12/18 00:01 Order name: CBC with Diff; Complete Time: 00:45 cp 12/18 00:45 Interpretation: Normal except: MPV 7.5. cp 12/18 00:01 Order name: CMP; Complete Time: 02:03 cp 12/18 02:03 Interpretation: Reviewed. cp 12/18 00:01 Order name: Lipase; Complete Time: 02:03 cp 12/18 02:03 Interpretation: Reviewed. cp 12/18 00:01 Order name: CT Pelvis w cont cp 12/18 00:01 Order name: IV Saline Lock; Complete Time: 00:20 cp 12/18 00:01 Order name: Labs collected and sent; Complete Time: 00:20 cp 12/18 00:01 Order name: NPO; Complete Time: 00:20 cp Administered Medications: 00:20 Drug: NS 0.9% IV 1000 ml Route: IV; Rate: 1 bolus; Site: right antecubital; kl 01:26 Follow up: IV Status: Completed infusion; IV Intake: 1000ml kl 00:20 Drug: morphine IVP or IV 4 mg Route: IVP; Infused Over: 4 mins; Site: right antecubital;kl 01:26 Follow up: Response: No adverse reaction; Marked relief of symptoms kl 02:34 Drug: Ampicillin-Sulbactam Sodium IVPB 3 grams Route: IVPB; Infused Over: 30 mins; cg Site: right antecubital; 03:09 Follow up: IV Status: Completed infusion; IV Intake: 100ml kl Disposition Summary: 12/18/22 02:26 Discharge Ordered Location: Home cp Problem: new cp Symptoms: have improved cp Condition: Stable cp Diagnosis - Anorectal abscess cp Followup: cp - With: John Hoyos MD - When: 1 - 2 days - Reason: Recheck today's complaints Discharge Instructions: - Discharge Summary Sheet cp - Anorectal Abscess cp Forms: - Medication Reconciliation Form cp - Thank You Letter cp - Antibiotic Education cp - Prescription Opioid Use cp - Patient Portal Instructions cp - Leadership Thank You Letter cp Prescriptions: - Augmentin 875-125 mg Oral Tablet - take 1 tablet by ORAL route every 12 hours for 10 days; 20 tablet; Refills: 0, cp Product Selection Permitted - Ibuprofen 800 mg Oral Tablet - take 1 tablet by ORAL route every 8 hours As needed take with food; 30 tablet; cp Refills: 0, Product Selection Permitted - Tramadol 50 mg Oral Tablet - take 1 tablet by ORAL route every 8 hours as needed; 12 tablet; Refills: 0, cp Product Selection Permitted Signatures: Dispatcher [employer] Lucy Mobley RN RN Tam Carrillo PA PA Zulema Hernandez RN RN cg Corrections: (The following items were deleted from the chart) 02:28 02:26 Rectal abscess cp cp
[2022-12-18] MEDS ORDERED: AMPICILLIN/SULBACTAM 3GM/VIAL ONE (02:29)
[2022-12-18 03:33] VITALS: TEMP 98; O2SAT 97
[2022-12-18 03:35] VITALS: BP 114/66
--- NOTE | 2022-12-18 11:21 | RAD REPORT ---
EXAM DESCRIPTION: CT - Pelvis W/Cont - 12/18/2022 4:47 am CLINICAL HISTORY: Rectal and buttock pain TECHNIQUE: Axial computed tomography images of the pelvis with intravenous contrast. Sagittal and coronal reformatted images were created and reviewed. This CT exam was performed using one or more of the following dose reduction techniques: automated exposure control, adjustment of the mA and/or kV according to patient size, and/or use of iterative reconstruction technique. COMPARISON: No relevant prior studies available. FINDINGS: Bowel: Unremarkable. No obstruction. No mucosal thickening. Appendix: Normal caliber appendix. No findings to suggest acute appendicitis. Intraperitoneal space: Unremarkable. No free air. No significant fluid collection. Bladder: The urinary bladder is distended. Reproductive: Unremarkable as visualized. Bones/joints: No acute fracture. No dislocation. Soft tissues: Tiny fat-containing umbilical hernia. Small bilateral fat-containing inguinal herni as. Peripherally enhancing left perianal collection extending to the perineum measuring approximate ly 2.2 x 1.2 x 1.7 cm. Vasculature: Mild atherosclerotic disease. No lower abdominal aortic aneurysm. Lymph nodes: Unremarkable. No enlarged lymph nodes. IMPRESSION: Left perianal abscess measuring 2.2 x 1.2 x 1.7 cm. Electronically signed by: Jose Carvajal MD 12/18/2022 1:59 AM CDT Due to temporary technical issues with the PACS/Fluency reporting system, reports are being signed by the in house radiologists without review as a courtesy to insure prompt reporting. The interpreting radiologist is fully responsible for the content of the report.
== END 2022-12-18 03:11 | disposition home or self-care (01) ==
LOC: ER 23:34
DX: K61.2 Anorectal abscess (principal)
CPT/HCPCS: 36415; 72193; 80053; 83690; 85025; 96361; 96365; 96375; 99284; J0295; J7030; Q9967

== ENCOUNTER 2022-12-20 13:14 | Day surgery (SDC) | payer SELFPAY ==
--- NOTE | 2022-12-20 12:38 | EKG ---
Test Date: 2022-12-19 Test Time: 16:09:35 Furniture Designer: STEFANY MEASUREMENT RESULTS: Intervals: Rate: 51 DC: 142 QRSD: 104 QT: 428 QTc: 394 [place]: P: 60 DC: 142 QRS: 66 T: 47 INTERPRETIVE STATEMENTS: Sinus bradycardia Otherwise normal ECG No previous ECG available for comparison Electronically Signed On 12-20-22 12:37:02 CDT by Alexandre Vasquez
[2022-12-20] MEDS ORDERED: Ringers Lactate 1,000 ML IV ONE (13:40)
[2022-12-20] MEDS ORDERED: CEFAZOLIN SODIUM 2 GM/VIAL ONE (13:40)
[2022-12-20] MEDS ORDERED: FENTANYL CITR 100 MCG/2 ML ONE ×2 (14:22→14:23)
[2022-12-20] MEDS ORDERED: propofoL 200 MG/20 ML VIAL IV ONE (14:22)
[2022-12-20] MEDS ORDERED: dexAMETHasone 10 MG/ML VIAL ONE (14:23)
[2022-12-20] MEDS ORDERED: ONDANSETRON 4 MG/2 ML VIAL ONE (14:23)
[2022-12-20] MEDS ORDERED: LIDOCAINE 2% MPF 5 ML VIAL ONE (14:23)
[2022-12-20] MEDS ORDERED: MIDAZOLAM HCL 2 MG/2 ML INJ ONE (14:23)
[2022-12-20] MEDS ORDERED: KETOROLAC 30 MG/ML INJ ONE (14:24)
[2022-12-20] MEDS ORDERED: NS 0.9% VIAL 10 ML ONE (14:25)
[2022-12-20] MEDS ORDERED: BUPIVACAINE 0.25% PF 10 ML VIAL ONE (14:47)
[2022-12-20] MEDS ORDERED: METHYLENE BLUE 1% 10 ML VIAL ONE (15:24)
[2022-12-20] MEDS ORDERED: LIDOCAINE HCL/EPINEPHRINE 20 ML MDV ONE (15:24)
[2022-12-20] MEDS ORDERED: MORPHINE 10 MG/ML VIAL ONE (15:30)
--- NOTE | 2022-12-20 15:35 | P.OP ---
Preoperative diagnosis: LEFT buttock Abscess Postoperative diagnosis: LEFT buttock Abscess Primary procedure: Exam under anesthesia Secondary procedure: drainage of LEFT perirectal abscess Anesthesia: GETA + Local Estimated blood loss: <20cc Specimen: cultures Findings: ~ 4cm x 4cm perirectal abscess Complications: None Transferred to: Recovery Room Condition: Good
[2022-12-20 16:23] VITALS: O2SAT 95
[2022-12-20] MEDS ORDERED: HYDROMORPHONE HCL 1 MG/ML INJ ONE (16:30)
[2022-12-20 17:40] VITALS: BP 103/53; TEMP 97.4
--- NOTE | 2022-12-20 19:46 | OP ---
Date of Procedure: 12/20/2022 Surgeon: John Hoyos MD, Preoperative Diagnosis: Left buttock abscess. Postoperative Diagnosis: Left buttock abscess. Procedures Performed: 1.Exam under anesthesia. 2.Drainage of left perirectal abscess. Anesthesia: General endotracheal plus local with 0.25% Marcaine. Estimated Blood Loss: 20 cc. Specimen: Culture sent both aerobic and anaerobic speciation. Findings: Approximately 4 cm x 4 cm perirectal abscess. Complications: None. Disposition: Patient was transferred to recovery room in good condition. Procedure In Detail: After informed consent was obtained, patient was brought to the operating room, prepped and draped in the usual sterile fashion after adequate anesthesia achieved. I injected meth ylene blue into an abscess of the left buttock area near the perirectal position, which was firm and tender. At this point, I did anoscopy and did not see any obvious connections to the internal rectal vault. There was some small amount of bleeding emanating from the external anal orifice, but this a ppeared to be the tiniest amount and did not appear to be communicating it. I think it was subcutane ous infiltration. At this point, I made a linear incision overlying the buttock abscess dissected do wn through subcutaneous tissues using electrocautery until an abscess was appreciated. At this point , a multiloculated abscess was appreciated running along the rectal vault extending up superiorly. T his was opened in its entirety and cultured both aerobic and anaerobic speciation. Quite a bit of ab scess material was appreciated. All the loculations were broken up and approximately 4 x 4 cm cavity was left behind with the opening place. I irrigated the area copiously multiple times. Hemostasis was achieved with electrocautery. The wound was then packed with Vashe-soaked dressing and a sterile dressing was placed over top. Patient tolerated the procedure well without evidence of any complica tion and transferred to PACU in good condition. All counts were correct at the end of the case. JESSY/CATALINA Voice ID: [id number] Report ID: [id number]
== END 2022-12-20 17:37 | disposition home or self-care (01) ==
LOC: OR 13:14
PROVIDERS: ATTEND Surgery
PROC: 0J990ZX Drainage of Buttock Subcutaneous Tissue and Fascia, Open Approach, Diagnostic (ICD-10-PCS; principal; 2022-12-20 15:15)
DX: L02.31 Cutaneous abscess of buttock (principal); K61.1 Rectal abscess; J45.909 Unspecified asthma, uncomplicated; E78.00 Pure hypercholesterolemia, unspecified; I25.2 Old myocardial infarction
CPT/HCPCS: 87070; 87075; 87077; 87186; 87205; 93005; A4216; J1100; J1170; J2001; J2250; J2405; J2704; J3010; J7120